=== PATIENT | female | born 1965 | race Caucasian/White ===

== ENCOUNTER 2018-05-03 08:00 | Day surgery (SDC) | payer MEDICARE, MEDICAID, SELFPAY ==
[2018-05-03 08:31] VITALS: BP 141/91; PULSE 75; RESP 14; TEMP 36.5; O2SAT 98
[2018-05-03] MEDS: SODIUM CHLORIDE 0.9% 1,000 ML 21 ML IV (08:35)
--- NOTE | 2018-05-03 09:32 | PM.OP.ENDO ---
Operative Date/Time/Diagnoses Date of procedure: 05/03/18 Time of procedure: 09:32 Pre-op diagnosis: See indications Procedure & Clinicians Study performed: Colonoscopy Indications: Rectal pain and fecal soilage Surgeon: Maciel Young Procedure Notes Procedure in detail: After informed consent was obtained the patient was placed in left lateral decubitus position. The video colonoscope was introduced the rectum slowly advanced to the cecum. Preparation was good though somewhat still had to be washed. Also withdrawal because was carefully examined. Scope was removed patient tolerated procedure well. Blood loss none Complications none Sedation Fentanyl 100 mcg Versed 7 mg IV titration The total sedation time 27 min Findings 1. Very normal mucosa with colonoscopy negative the cecum 2. Large internal hemorrhoids 3. Otherwise negative colonoscopy to cecum Patient will follow up in the office with Dr. Burk in stay under current medications. Scope withdrawal time: 6 Sedation minutes: 27
[2018-05-03] MEDS: fentaNYL 250 MCG/5 ML INJ IV (09:33)
[2018-05-03] MEDS: MIDAZOLAM 5 MG/5 ML VIAL IV (09:33)
[2018-05-03 09:35] VITALS: BP 181/108; PULSE 82; RESP 14; TEMP 36.1; O2SAT 96
[2018-05-03 09:40] VITALS: BP 142/102; PULSE 76; RESP 14; O2SAT 94
[2018-05-03 10:05] VITALS: BP 146/99; PULSE 72; RESP 17; TEMP 36.6; O2SAT 99
== END 2018-05-03 10:14 | disposition home or self-care (01) ==
PROVIDERS: Internal Medicine Gastroenterology; Visit Provider Internal Medicine Gastroenterology
PROC: 0DJD8ZZ Inspection of Lower Intestinal Tract, Via Natural or Artificial Opening Endoscopic (ICD-10-PCS; CPT 45378; principal; 2018-05-03 09:00)
DX: K62.89 Other specified diseases of anus and rectum (principal); R15.1 Fecal smearing; K64.8 Other hemorrhoids
CPT/HCPCS: 45378; J2250; J3010

== ENCOUNTER → 2022-01-05 13:58 | Outpatient (CLI) | payer MEDICARE, MEDICAID, SELFPAY ==
--- NOTE | 2022-01-05 | DI.MRI.S_ITS ---
PROCEDURE: MR HEAD/BRAIN WO/W CON INDICATIONS: Paresthesia of skin TECHNIQUE: Noncontrast axial T1 spin echo, axial T2 fast spin echo, sagittal and axial FLAIR, coronal T2 fast spin echo, axial gradient echo, axial diffusion and ADC through the brain. After the administration of contrast, axial and coronal 3D VIBE or T1 spin echo with fat saturation through the brain. COMPARISON: None. FINDINGS: Image quality: Degraded by patient motion artifact. CSF Spaces: Basal cisterns are patent. No extra-axial fluid collections. Ventricles are normal in size and shape. Brain: No midline shift. No intracranial bleeds. No abnormal intracranial enhancement. The brainstem appears normal. Diffusion-weighted images demonstrate no acute ischemic insults. No chronic ischemic insults. Normal intravascular flow voids are present. Skull and face: There is a large 5.1 x 3.3 by 3.4 centimeter heterogeneously enhancing mass involving the right occipital bone and right lateral mass of C1 vertebral body. Mass is causing erosive changes in the right occipital bone in the right lateral mass of C1. The mass extends into the right posterior fossa and is causing mild mass effect on the right cerebellar hemisphere. Lesion is causing erosive changes in the right occipital bone and possibly the right lateral mass of C1 vertebral body.. Orbits appear normal. Sinuses: Sinuses and mastoids appear clear. IMPRESSION: 1. 5.1 x 3.3 x 3.4 centimeter enhancing mass causing erosive changes in the right occipital bone in the right lateral mass of C1. Lesion extends into the right posterior fossa and is causing mild mass effect on the right cerebellar hemisphere. Differential diagnosis includes primary malignancy including sarcoma and metastatic disease. Recommend neurosurgical consultation. 2. Findings telephoned to Dr. Andi Del Cid on 01/05/2022 at 4:35 p.m.. Dictated by: Karla Denis MD, PhD on 01/05/2022 at 16:32 Approved by: Karla Denis MD, PhD on 01/05/2022 at 16:42
== END ==
PROVIDERS: PCP Family Medicine; Referring Provider Psychiatry & Neurology Neurology; Visit Provider Psychiatry & Neurology Neurology
DX: G93.9 Disorder of brain, unspecified (principal); M89.9 Disorder of bone, unspecified; R20.2 Paresthesia of skin
CPT/HCPCS: 70553; A9579